=== PATIENT | male | born 1975 | race Two or more races ===

== ENCOUNTER 2019-06-17 01:50 | Emergency (ER) | payer OTHER ==
[~2019-06-17] VITALS: Ht 177.8 cm; Wt 104.3 kg
--- OUTSIDE RECORDS SUMMARY | 2019-06-17 01:53 | XMS REPORT | Summary of Care ---
Author Author [facility] Outpatient Imaging [facility] Outpatient [facility] Address Unknown Phone Unavailable Encounter HQ Encntr_alias(FIN) [id number] Date(s): 03/10/19 - 03/10/19 [facility] [address] [facility], [address] [place] [phone] Discharge Disposition: Home or Self Care Attending Physician: Romeo Lofton MD Referring Physician: Romeo Lofton MD Vital Signs No data available for this section Problem List No data available for this section Allergies, Adverse Reactions, Alerts No data available for this section Medications No data available for this section Results No data available for this section Immunizations No data available for this section Procedures No data available for this section Social History No data available for this section Assessment and Plan No data available for this section
--- OUTSIDE RECORDS SUMMARY | 2019-06-17 01:53 | XMS REPORT | Continuity of Care Document ---
Author Author [facility] Address Unknown Phone Unavailable Care Team Providers Care Admissions Recruiter Name Role Phone [employer] Unavailable Unavailable Problems Problem Status Onset Date Classification Date Reported Comments Source M54.6 - PAIN IN THORACIC SPINE Active 03/03/2019 [employer] Medications No Data Provided for This Section Allergies, Adverse Reactions, Alerts No Known Medication Allergies Immunizations No Data Provided for This Section Results No Data Provided for This Section Pathology Reports No Data Provided for This Section Diagnostic Reports Report Value Date Source Chest w contrast CT EXAM: CT CHEST WITH CONTRAST DATE: 04/01/2019 9:28 CDT INDICATION: - current smoker COMPARISON: No prior CT chest available for comparison. TECHNIQUE: Volumetric CT of the chest is acquired following intravenous administration of contrast. Axial, coronal and sagittal images are provided. IV Contrast: Please see electronic test technician notes. DLP: 869.63 mGy-cm FINDINGS: Lines, tubes and hardware: None. Lower neck: The visible portions or the lower neck and thyroid are unremarkable. Axilla: There are no enlarged axillary lymph nodes. Airway: Patent. Lungs and pleura: No pleural effusion or pneumothorax. There is a 3 mm subpleural nodule in the left upper lobe on images 85 of series 2. Mediastinum, ari and intrathoracic lymph nodes: No enlarged mediastinal or hilar lymph nodes. Heart, pericardium and great vessels: The heart is normal in size. The aorta and main pulmonary artery have normal caliber. No pericardial effusion. Punctate calcification seen the aortic arch. Upper abdomen: Partially imaged upper abdomen shows normal adrenal glands. There is a 10 mm right renal cyst on image 253 of series 2. Diffuse fatty liver infiltration. Bones: No acute abnormality. Age-related degenerative findings. Soft tissues: Normal. IMPRESSION: 1. Small subpleural left upper lobe nodule may represent infectious/inflammatory etiology or sequela of prior infection. Optional CT follow-up in 12 months may be performed. 2. Small right renal cyst. 3. Diffuse fatty liver infiltration. 04/01/2019 [facility] Liver Protocol w/wo IV contrast CT EXAM: CT ABDOMEN WITH AND WITHOUT CONTRAST DATE: 03/27/2019 13:00 CDT INDICATION: - R16.2 Hepatomegaly with splenomegaly, not elsewhere classified ADDITIONAL INFORMATION: None. COMPARISON: None. TECHNIQUE: Volumetric CT acquisition of the abdomen both prior to and following intravenous contrast, in precontrast, arterial, portal venous and delayed phases of enhancement, per the dynamic liver protocol. Axial, sagittal and coronal reconstructions. IV contrast: 150 cc Omnipaque 300 Oral contrast: 750 cc water DLP: 3275 mGy-cm FINDINGS: Lines and tubes: None. Lower thorax: Clear. Liver: Craniocaudal length: 17.3 cm. In the midaxillary line Density: Normal. Surface nodularity: None.. Hepatic masses: None. Non-enhancing/cystic hepatic lesions: None. Hepatic vessels: Hepatic arterial anatomy: Conventional. Arterial stenoses: None. Portal vein: Caliber: 1.7 cm. Portosystemic collaterals are None. Hepatic, splenic and superior mesenteric veins, and IVC: Patent. Regional lymph nodes: Normal. Biliary tree: No intra- or extrahepatic biliary ductal dilation. Gallbladder: Normal. No CT evidence of gallstones. Pancreas: Normal. Spleen: Enlarged measuring 14.1 cm craniocaudally Adrenals: Normal. Kidneys and ureters: Simple 1.3 cm cortical cyst in the midpole of the right kidney. Gastrointestinal tract: Stomach: Unremarkable. Small bowel: The visible portions are unremarkable. Colon: The visible portions are unremarkable. Appendix: Normal. Peritoneum and retroperitoneum:No free fluid or free air. There is an enhancing 1.3 cm nodule in the right perirenal space (8/113) that demonstrates the same attention as a renal parenchyma and may represent ectopic renal tissue. Lymph nodes: Normal. Arteries: Normal. Veins:No thrombus seen. Bones: Normal. Soft tissues: Normal. IMPRESSION: 1. Hepatosplenomegaly. No parenchymal abnormalities of the liver or spleen are noted however. 2. Dilation of the portal vein. This is a nonspecific finding which can be seen with portal venous hypertension. Please correlate clinically. 03/27/2019 [facility] Spine thoracic 2 views DX EXAM: XR THORACIC SPINE 2 VIEWS DATE: 03/10/2019 8:24 CDT INDICATION: - M54.6 Pain in thoracic spine COMPARISON: None TECHNIQUE: AP and lateral radiographs of the thoracic spine FINDINGS: Vertebral body heights, disk heights and alignment are preserved. No degenerative disk disease or osteoarthritis. No soft tissue abnormality is identified. IMPRESSION: No significant radiographic abnormality. 03/10/2019 [facility] Abdomen complete US EXAM: US ABDOMEN COMPLETE DATE: 03/10/2019 8:11 CDT INDICATION: - R10.9 Unspecified abdominal pain. Right back/flank pain radiating to the right upper quadrant of the past one month ADDITIONAL INFORMATION: None. COMPARISON: None. TECHNIQUE: Multiplanar grayscale and color Doppler ultrasound images of the abdomen. FINDINGS: Liver: Craniocaudal length: 14.5 cm. Normal. Echogenicity: Increased diffusely. Surface nodularity: None Mass (size and location): None. Portal vein: 13.5 mm with hepatopetal flow. Bile ducts: Common bile duct diameter: 4 mm. Normal. Intrahepatic ducts: Normal. Gallbladder: Normal. Gallstones: None. Gallbladder sludge: None. Gallbladder wall: 1.7 mm. Normal. Pericholecystic fluid: None. Sonographic Lofton sign: Absent. Pancreas: No abnormalities of the visualized portions of the pancreas are demonstrated. Portions of the pancreas are obscured by overlying bowel gas. Spleen: Craniocaudal length: 13.5 cm. Enlarged. Mass or focal lesion (size and location): None. Right kidney: Size: 12.8 x 4.9 x 4.8 cm. Normal. Hydronephrosis: None. Echogenicity: Normal. Mass/Stone/Cyst (size and location): A simple anechoic avascular thin-walled cyst is seen in the right mid renal cortex measuring 1.3 x 1.4 x 1.0 cm. Left kidney: Size: 12.5 x 4.5 x 4.8 cm. Normal. Hydronephrosis: None. Echogenicity: Normal. Mass/Stone/Cyst (size and location): None. Abdominal aorta and IVC: Visualized portions are normal. Ascites: None Pleural Effusions: None IMPRESSION: 1. Diffuse increased liver echogenicity, a nonspecific finding most commonly caused by fatty infiltration (steatosis) of the liver. 2. Mild prominence of the main portal vein as well as nonspecific splenomegaly may represent the sequela of mild portal hypertension. 3. Simple 1.4 cm cyst in the right kidney. 03/10/2019 [facility] Consultation Notes No Data Provided for This Section Discharge Summaries No Data Provided for This Section History and Physicals No Data Provided for This Section Vital Signs No Data Provided for This Section Encounters Location Location Details Encounter Type Encounter Number Reason For Visit Attending Provider ADM Date DC Date Status Source [facility] Outpatient Imaging - [facility] [id number] Romeo Lofton 03/10/2019 03/11/2019 [facility] Outpatient Imaging - [facility] [id number] Cas Mcintyre 03/27/2019 03/28/2019 [facility] Outpatient Imaging - [facility] [id number] Damián Ortez 04/01/2019 04/02/2019 [facility] Procedures No Data Provided for This Section Assessment and Plan No Data Provided for This Section Plan of Care No Data Provided for This Section Social History Social History Date Source No data available for this section [facility] Family History No Data Provided for This Section Advance Directives No Data Provided for This Section Functional Status No Data Provided for This Section
--- OUTSIDE RECORDS SUMMARY | 2019-06-17 01:53 | XMS REPORT | Summary of Care ---
Author Author [facility] Outpatient Imaging [facility] Outpatient [facility] Address Unknown Phone Unavailable Encounter HQ Encntr_alido(FIN) [id number] Date(s): 04/01/19 - 04/01/19 [facility] Imaging [facility] [address] [facility], [address] [place] [phone] Discharge Disposition: Home or Self Care Attending Physician: Damián Ortez MD Referring Physician: Damián Ortez MD Vital Signs No data available for [...]
--- OUTSIDE RECORDS SUMMARY | 2019-06-17 01:53 | XMS REPORT ---
Author Author [facility] Address Unknown Phone Unavailable Care Team Providers Care Assistant Sales Director Name Role Phone Unavailable Unavailable Payers Payer Name Policy Type Policy Number Effective Date Expiration Date Problems This patient has no known problems. Allergies, Adverse Reactions, Alerts Allergy Name Allergy Type Status Severity Reaction(s) Onset Date Inactive Date Treating Clinician Comments No Known Allergies DA Active U 2019-02-14 00:00:00 Medications This patient has no known medications. Results Test Description Test Time Test Comments Text Results Atomic Results Result Comments URINALYSIS COMPLETE 2019-02-14 12:54:00 UA COLOR (test code=COLU) YELLOW YELLOW UA APPEARANCE (test code=APPU) CLEAR CLEAR UA GLUCOSE DIPSTICK (test code=DGLUU) NEGATIVE mg/dL NEGATIVE UA BILIRUBIN DIPSTICK (test code=BILU) NEGATIVE mg/dL NEGATIVE UA KETONE DIPSTICK (test code=KETU) NEGATIVE mg/dL NEGATIVE UA SPECIFIC GRAVITY (test code=SGU) 1.025 1.001-1.035 UA BLOOD DIPSTICK (test code=AISHWARYA) Negative mg/dL NEGATIVE UA PH DIPSTICK (test code=MEHDI) 5.0 5.0-8.0 UA PROTEIN DIPSTICK (test code=PROU) NEGATIVE mg/dL NEGATIVE UA UROBILINIOGEN DIPSTICK (test code=URO) NEGATIVE mg/dL NEGATIVE UA NITRITE DIPSTICK (test code=SHIMA) NEGATIVE NEGATIVE UA LEUKOCYTE ESTERASE W REFLEX (test code=LEUUR) NEGATIVE Ari/uL NEGATIVE UA WBC (test code=WBCU) 0-5 per HPF 0-5 UA RBC (test code=RBCU) 0-2 #/HPF 0-5 UA BACTERIA (test code=BACU) FEW #/HPF NONE UA MUCUS (test code=MUCU) FEW #/LPF FEW Urine Source? Clean CatchURINALYSIS [id number] 12:47:00* Test Item Value Reference Range Comments UA COLOR (test code=COLU) YELLOW YELLOW UA APPEARANCE (test code=APPU) CLEAR CLEAR UA GLUCOSE DIPSTICK (test code=DGLUU) NEGATIVE mg/dL NEGATIVE UA BILIRUBIN DIPSTICK (test code=BILU) NEGATIVE mg/dL NEGATIVE UA KETONE DIPSTICK (test code=KETU) NEGATIVE mg/dL NEGATIVE UA SPECIFIC GRAVITY (test code=SGU) 1.025 1.001-1.035 UA BLOOD DIPSTICK (test code=AISHWARYA) Negative mg/dL NEGATIVE UA PH DIPSTICK (test code=MEHDI) 5.0 5.0-8.0 UA PROTEIN DIPSTICK (test code=PROU) NEGATIVE mg/dL NEGATIVE UA UROBILINIOGEN DIPSTICK (test code=URO) NEGATIVE mg/dL NEGATIVE UA NITRITE DIPSTICK (test code=SHIMA) NEGATIVE NEGATIVE UA LEUKOCYTE ESTERASE W REFLEX (test code=LEUUR) NEGATIVE Ari/uL NEGATIVE UA WBC (test code=WBCU) per HPF 0-5 Urine Source? Clean Catch
--- OUTSIDE RECORDS SUMMARY | 2019-06-17 01:53 | XMS REPORT | Summary of Care ---
Author Author [facility] Outpatient Imaging [facility] Outpatient [facility] Address Unknown Phone Unavailable Encounter HQ Encntr_alias(FIN) [id number] Date(s): 03/27/19 - 03/27/19 [facility] Imaging [facility] [address] [facility], [address] [place] [phone] Discharge Disposition: Home or Self Care Attending Physician: Cas Mcintyre MD Referring Physician: Cas Mcintyre MD Vital Signs No data available for [...]
[2019-06-17] MEDS: SODIUM CHLORIDE 0.9% 1000ML 1,000 ML IV SCH (02:09)
[2019-06-17 02:10] VITALS: BP 133/76
--- NOTE | 2019-06-17 02:11 | NUR ---
ORTHOSTATIC VITAL SIGNS DONE. PT REPORTS HE FELT MILDLY DIZZY WHILE STANDING. MD AWARE
[2019-06-17] MEDS ORDERED: SODIUM CHLORIDE 0.9% 1000ML 1,000 ML ONE (02:12)
[2019-06-17 02:17] LABS: HEMATOCRIT 51.8 % (38.2-49.6); HEMOGLOBIN 17.7 g/dL (14.0-18.0); MEAN CORPUSCULAR HEMOGLOBIN 27.1 pg (28-32); MEAN CORPUSCULAR HGB CONC 34.2 g/dL (31-35); MEAN CORPUSCULAR VOLUME 79.3 fL (81-99); PLATELET COUNT 225 x10e3/uL (140-360); RED BLOOD COUNT 6.53 x10e6/uL (4.3-5.7)
[2019-06-17 02:31] LABS: ALANINE AMINOTRANSFERASE 25 IU/L (0-55); ALBUMIN 4.3 g/dL (3.5-5.0); ALBUMIN/GLOBULIN RATIO 1.4 (0.8-2.0); ALKALINE PHOSPHATASE 64 IU/L (40-150); ANION GAP 18.4 mmol/L (8-16); BLOOD UREA NITROGEN 15 mg/dL (7-26); BUN/CREATININE RATIO 14 (6-25); CALCIUM 9.7 mg/dL (8.4-10.2); CARBON DIOXIDE 21 mmol/L (22-29); CHLORIDE 103 mmol/L (98-107); CREATINE KINASE 101 IU/L (30-200); CREATININE, SERUM 1.11 mg/dL (0.72-1.25); EST GLOMERULAR FILTRATION RATE > 60 ML/MIN (60-); GLUCOSE 125 mg/dL (74-118); POTASSIUM 3.4 mmol/L (3.5-5.1); SODIUM 139 mmol/L (136-145)
--- NOTE | 2019-06-17 02:35 | Diagnostic Imaging Report ---
History:Passed out, dizziness and passed out Comparison studies: None Technique: Axial images were obtained from the skull base to the vertex. Coronal and sagittal reconstructions obtained from the axial data. Dose modulation, iterative reconstruction, and/or weight based adjustment of the mA/kV was utilized to reduce the radiation dose to as low as reasonably achievable. Findings: Scalp/skull: No abnormalities. No fractures, blastic or lytic lesions. Extra-axial spaces: No masses. No fluid collections. Brain sulci: Appropriate for age. Ventricles: Normal in size and configuration. No hydrocephalus. Parenchyma: No abnormal densities. No masses, hemorrhage, acute or chronic cortical vascular insults. Sellar/suprasellar region: No abnormalities Craniocervical junction: Patent foramen magnum. No Chiari one malformation. IMPRESSION: No abnormalities . Signed by: DR Real Lock M.D. on 06/17/2019 2:32 AM
[2019-06-17] MEDS: POTASSIUM CHLORIDE 10MEQ EA PO ONE (02:57)
[2019-06-17] MEDS: POTASSIUM CHLORIDE 20 MEQ TAB CR PO STA (02:57)
[2019-06-17] MEDS ORDERED: POTASSIUM CHLORIDE 20 MEQ TAB CR PO ONE (02:58)
== END 2019-06-17 03:45 | disposition home or self-care (01) ==
LOC: ER 01:50
DX: R55 Syncope and collapse (principal); S00.83XA Contusion of other part of head, initial encounter; W18.39XA Other fall on same level, initial encounter; Y93.89 Activity, other specified; Y92.002 Bathroom of unspecified non-institutional (private) residence as the place of occurrence of the external cause
CPT/HCPCS: 36415; 70450; 80053; 82550; 82553; 84484; 85007; 85027; 99283; J7030